=== PATIENT | male | born 1990 | race American Indian/Alaskan Native ===

== ENCOUNTER 2021-01-29 10:43 | Emergency (ER) | payer SELFPAY ==
[2021-01-29 14:31] VITALS: BP 139/90
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
== END 2021-01-29 15:57 | disposition home or self-care (01) ==
LOC: ED 10:43
DX: M54.2 Cervicalgia (principal); M25.511 Pain in right shoulder; M25.512 Pain in left shoulder; M79.652 Pain in left thigh; V49.49XA Driver injured in collision with other motor vehicles in traffic accident, initial encounter; Y93.89 Activity, other specified; Y92.89 Other specified places as the place of occurrence of the external cause; Y99.8 Other external cause status
CPT/HCPCS: 72040; 99283